=== PATIENT | female | born 1935 | race Caucasian/White ===

== ENCOUNTER 2021-09-26 21:09 | Emergency (ER) | payer OTHER ==
[~2021-09-26 21:09] MED LIST: CIPRO500 MG PO; COZAAR 25MG TAB25 MG PO; LEVOTHYROXINE50 MCG PO; MACROBID 100 M100 MG PO; METRONIDAZOLE500 MG PO; PANTOPRAZOLE SO20 MG PO; ZOFRAN 4 MG TAB4 MG PO
[2021-09-26 23:21] LABS: HEMOGLOBIN 11.8 gm/dl (12.3-15.3); RED BLOOD COUNT 3.76 M/UL (4.00-5.10)
[2021-09-26 23:36] LABS: BUN/CREATININE RATIO 20 (0-10)
== END 2021-09-27 00:33 | disposition home or self-care (01) ==
LOC: ER1 21:09
PROVIDERS: Student in an Organized Health Care Education/Training Program
DX: K81.9 Cholecystitis, unspecified (principal); I10 Essential (primary) hypertension; E07.9 Disorder of thyroid, unspecified; Z20.822 Contact with and (suspected) exposure to COVID-19
CPT/HCPCS: 71045; 80053; 81001; 85025; 93005; 99284; U0002

== ENCOUNTER → 2021-10-14 | Day surgery (SDC) | payer OTHER ==
[~2021-10-14] MED LIST changes: +ASPIRIN CHEWABL81 MG PO; +CANDICIDAL CAP1 EACH PO; +COZAAR25 MG PO; +GARLIC OIL1000 MG PO; +HYDROCODON-ACE1 EAC4 PO; +LEVOTHYROXINE50 MC1 PO; +POTASSIUM99 M1 PO; +PRESERVISION A1 EACH PO; +PROTONIX20 MG PO; +SUPER B COMPLE1 EAC1 PO; +VITAMIN C500 M4 PO; +VITAMIN D250 MCG PO; +VITAMIN E180 M1 PO; +WOMEN'S 50 PLU1 EACH PO
[2021-10-14 07:59] LABS: HEMOGLOBIN 11.9 gm/dl (12.3-15.3); RED BLOOD COUNT 3.86 M/UL (4.00-5.10); WHITE BLOOD COUNT 7.7 K/UL (4.5-11.0)
[2021-10-14 08:29] LABS: BUN/CREATININE RATIO 19 (0-10)
== END | disposition home or self-care (01) ==
LOC: OR 06:47
PROVIDERS: Surgery
DX: K80.10 Calculus of gallbladder with chronic cholecystitis without obstruction (principal); K66.0 Peritoneal adhesions (postprocedural) (postinfection); I10 Essential (primary) hypertension; E03.9 Hypothyroidism, unspecified; Z79.82 Long term (current) use of aspirin; Z79.899 Other long term (current) drug therapy; Z20.822 Contact with and (suspected) exposure to COVID-19
CPT/HCPCS: 36415; 71045; 80048; 85027; C1729; J1100; J2001; J2405; J2704; J2710; J3010; J7030; J7120